=== PATIENT | female | born 1960 | race Caucasian/White ===

== ENCOUNTER 2019-11-05 11:05 | Emergency (ER) | payer OTHER ==
[~2019-11-05] VITALS: Ht 152.4 cm; Wt 61.0 kg
[2019-11-05] MEDS ORDERED: SODIUM CHLORIDE 0.9% 1,000 ML IV ONE (11:35)
[2019-11-05 12:44] LABS: CHLORIDE 112 mEq/L (98-107)
[2019-11-05 14:38] VITALS: BP 135/74
[2019-11-05] MEDS ORDERED: ONDANSETRON HCL 4MG/2ML INJ IV ONE (15:00)
[2019-11-05 15:56] LABS: BASOPHILS % 0.2 % (0.0-2.0); EOSINOPHILS % 0.1 % (0.0-5.0); HEMATOCRIT. 39.6 % (36.0-48.0); HEMOGLOBIN. 13.3 g/dL (12.0-16.0); LYMPHOCYTES % 10.5 % (20.0-50.0); MEAN CORPUSCULAR HEMOGLOBIN 28.9 pg (28.0-32.0); MEAN CORPUSCULAR VOLUME 85.8 fL (81.0-99.0); MEAN PLATELET VOLUME 8.7 fl (7.4-10.4); MONOCYTES % 2.3 % (2.0-8.0); NEUTROPHILS % 86.9 % (40.0-76.0); PLATELET 222 x1000/uL (130-400); RED BLOOD CELL COUNT 4.61 mill/uL (4.2-5.4); RED CELL DISTRIBUTION WIDTH 13.8 % (11.6-14.6)
== END 2019-11-05 16:52 | disposition home or self-care (01) ==
LOC: ER 11:18
DX: F12.129 Cannabis abuse with intoxication, unspecified (principal)
CPT/HCPCS: 36415; 80053; 84484; 85025; 93005; 96361; 96374; 99284; J2405; J7030